=== PATIENT | female | born 1990 | race Caucasian/White ===

== ENCOUNTER 2022-07-06 07:29 | Inpatient (IN) ==
[2022-07-06] MEDS ORDERED: ZOFRAN INJ 4 MG VIAL ONE (07:37)
[2022-07-06] MEDS ORDERED: REGLAN INJ 10 MG VIAL ONE (07:37)
[2022-07-06] MEDS ORDERED: ANCEF VIAL 1 GRAM ONE (07:38)
[2022-07-06] MEDS ORDERED: D5 1/2 NS 1,000 mL + PITOCIN 20 UNITS/L IV 20 UNITS/1,000 ML BAG IV ONE (07:38)
[2022-07-06] MEDS ORDERED: NS 100 ML IV 100 ML ONE (07:38)
[2022-07-06] MEDS ORDERED: PEPCID 20 MG VIAL ONE (07:38)
[2022-07-06] MEDS ORDERED: LR 1,000 ML IV 1,000 ML IV ONE ×3 (07:38→09:07)
[2022-07-06] MEDS ORDERED: ANCEF VIAL 1 GRAM IVP ONE (07:47)
[2022-07-06] MEDS ORDERED: ZOFRAN INJ 4 MG VIAL IVP ONE (07:50)
[2022-07-06] MEDS ORDERED: PEPCID 20 MG VIAL IVP ONE (07:50)
[2022-07-06] MEDS ORDERED: REGLAN INJ 10 MG VIAL IVP ONE (07:50)
[2022-07-06 08:30] LABS: BILIRUBIN,URINE NEGATIVE (NEGATIVE); BLOOD/HEMOGLOBIN,URINE NEGATIVE (NEGATIVE); GLUCOSE, URINE NEGATIVE (NEGATIVE); KETONES,URINE 1+ (NEGATIVE); LEUKOCYTE ESTERASE ,URINE 2+ (NEGATIVE); NITRITES,URINE NEGATIVE (NEGATIVE); PROTEIN,URINE 1+ (NEGATIVE); UROBILINOGEN,URINE 2+ (NORMAL)
[2022-07-06 08:34] LABS: BASOPHILS # (AUTO) 0.1 X10^3/uL (0.0-0.1); BASOPHILS % (AUTO) 0.7 % (0.2-1.0); EOSINOPHILS # (AUTO) 0.1 x10^3/uL (0.0-0.2); EOSINOPHILS % (AUTO) 1.5 % (0.9-2.9); HEMATOCRIT 32.8 % (36.0-47.0); HEMOGLOBIN 11.5 g/dL (12.0-16.0); MEAN CORPUSCULAR VOLUME 82.9 fL (80.0-100.0); MEAN PLATELET VOLUME 7.9 fL (7.4-11.0); MONOCYTES # (AUTO) 0.7 x10^3/uL (0.3-0.8); MONOCYTES % (AUTO) 7.7 % (0.0-13.0); NEUTROPHILS # (AUTO) 5.8 x10^3/uL (2.2-4.8); NEUTROPHILS % (AUTO) 67.1 % (42.0-75.0); RED BLOOD COUNT 3.96 X10^6/uL (3.5-5.4); RED CELL DISTRIBUTION WIDTH 15.5 % (11.6-16.5); WHITE BLOOD COUNT 8.6 X10^3/uL (3.6-10.0)
[2022-07-06 08:37] LABS: BLOOD UREA NITROGEN 6 mg/dL (7-18); CALCIUM 8.2 mg/dL (8.5-10.1); CARBON DIOXIDE 21.7 mmol/L (21-32); CHLORIDE 105 mmol/L (98-107); CREATININE 0.56 mg/dL (0.55-1.02); SODIUM 139 mmol/L (136-145); eGFR NON BLACK RACES > 60 (>60)
[2022-07-06] MEDS ORDERED: EPHEDRINE SULFATE INJ ONE (08:44)
[2022-07-06 08:46] LABS: APPEARANCE,URINE HAZY (CLEAR); BACTERIA,URINE TRACE /HPF (NEGATIVE); COLOR,URINE YELLOW (YELLOW); RBC,URINE 0-2 /HPF (0-3); SQUAMOUS EPITHELIAL CELL,UR MANY /HPF (NEGATIVE)
[2022-07-06] MEDS ORDERED: MARCAINE SPINAL ONE (08:48)
[2022-07-06] MEDS ORDERED: DILAUDID INJ ONE (08:48)
[2022-07-06] MEDS ORDERED: XYLOCAINE 2 % (PLAIN) ONE (08:57)
[2022-07-06] MEDS ORDERED: TORADOL 30 MG VIAL ONE (08:59)
[2022-07-06] MEDS ORDERED: PITOCIN ONE ×2 (08:59)
[2022-07-06] MEDS ORDERED: OFIRMEV IV 1000 MG VIAL 1,000 MG/100 ML VIAL IV ONE (09:49)
[2022-07-06] MEDS ORDERED: ZOFRAN INJ 4 MG VIAL IVP PRN (10:57)
[2022-07-06] MEDS ORDERED: BENADRYL INJ 50 MG VIAL IVP PRN (10:57)
[2022-07-06] MEDS ORDERED: D5 1/2 NS 1,000 ML 1,000 ML with PITOCIN 20 UNITS IV PRN ×2 (10:57)
[2022-07-06] MEDS ORDERED: PHENERGAN INJ 25 MG IM PRN (10:57)
[2022-07-06] MEDS ORDERED: MYLICON TAB 80 MG CHEW PO PRN (10:57)
[2022-07-06] MEDS: TORADOL 30 MG VIAL IM PRN (20:05)
[2022-07-06] MEDS ORDERED: D5 1/2 NS 1,000 ML 1,000 ML IV ONE (21:23)
[2022-07-06] MEDS ORDERED: D5 1/2 NS 1,000 ML 1,000 ML IV SCH (21:25)
[2022-07-07] MEDS ORDERED: LR 1,000 ML IV 1,000 ML IV ONE ×2 (00:19→06:41)
[2022-07-07] MEDS: LR 1,000 ML IV 1,000 ML IV SCH ×3 (01:57→18:09)
[2022-07-07 05:58] LABS: HEMOGLOBIN 6.2 g/dL (12.0-16.0)
[2022-07-07 05:59] LABS: HEMATOCRIT 17.6 % (36.0-47.0)
[2022-07-07] MEDS: TORADOL 30 MG VIAL IM PRN (06:40)
[2022-07-07] MEDS ORDERED: PRENATAL PLUS PO SCH (09:00)
[2022-07-07] MEDS ORDERED: NS 250 ML IV 250 ML IV ONE ×2 (09:05→12:06)
[2022-07-07] MEDS ORDERED: INFeD or DEXFERRUM 25 MG in NS 100 ML IV 100 ML IV NR (10:00)
[2022-07-07] MEDS ORDERED: TYLENOL 500 MG TAB EXTRA STRENGTH PO PRN (11:41)
[2022-07-07] MEDS: INFeD or DEXFERRUM 975 MG in NS 500 ML IV 500 ML IV NR ×2 (15:04→16:30)
[2022-07-07 15:52] LABS: HEMATOCRIT 20.8 % (36.0-47.0); HEMOGLOBIN 7.4 g/dL (12.0-16.0)
[2022-07-07] MEDS ORDERED: ADACEL or BOOSTRIX TDaP VACCINE IM ONE (17:58)
[2022-07-07 20:05] VITALS: BP 107/64
== END 2022-07-07 20:20 | disposition home or self-care (01) | DRG 788 ==
LOC: LD 07:29 → MED/SURG 11:06
PROVIDERS: ADMIT Obstetrics & Gynecology Obstetrics; ATTEND Obstetrics & Gynecology Obstetrics
DX: N85.8 Other specified noninflammatory disorders of uterus; Z3A.39 39 weeks gestation of pregnancy; Z37.0 Single live birth; O34.211 Maternal care for low transverse scar from previous cesarean delivery

== ENCOUNTER 2024-02-25 06:17 | Inpatient (IN) ==
[2024-02-25] MEDS: AQUA-MEPHYTON NEONATAL IM ONE (06:47)
[2024-02-25] MEDS: ILOTYCIN OPHTH OINT ONE (06:47)
[2024-02-25] MEDS: LR 1,000 ML IV 1,000 ML IV ONE ×3 (07:00→08:03)
[2024-02-25] MEDS: NOZIN NASAL SANITIZER TP ONE (07:00)
[2024-02-25] MEDS: ANCEF VIAL 1 GRAM IVP ONE (07:06)
[2024-02-25] MEDS: XYLOCAINE 2 % (PLAIN) ONE (07:43)
[2024-02-25] MEDS: ZOFRAN INJ 4 MG VIAL ONE (07:43)
[2024-02-25] MEDS: PEPCID 20 MG VIAL ONE (07:43)
[2024-02-25] MEDS: OFIRMEV IV 1000 MG VIAL 1,000 MG/100 ML VIAL IV ONE (07:43)
[2024-02-25] MEDS: MARCAINE SPINAL ONE (07:43)
[2024-02-25] MEDS: DECADRON INJ ONE ×2 (07:43→08:19)
[2024-02-25] MEDS: TORADOL 30 MG VIAL ONE (07:43)
[2024-02-25] MEDS: DILAUDID INJ ONE (07:48)
[2024-02-25 07:49] LABS: BASOPHILS % (AUTO) 0.6 % (0.2-1.0); EOSINOPHILS # (AUTO) 0.1 x10^3/uL (0.0-0.2); EOSINOPHILS % (AUTO) 1.4 % (0.9-2.9); HEMATOCRIT 31.7 % (36.0-47.0); HEMOGLOBIN 11.2 g/dL (12.0-16.0); LYMPHOCYTES # (AUTO) 1.8 X10^3/uL (1.3-2.9); LYMPHOCYTES % (AUTO) 24.2 % (21.0-51.0); MEAN CORPUSCULAR HEMOGLOBIN 30.5 pg (27.0-34.0); MEAN CORPUSCULAR HGB CONC 35.3 g/dL (33.0-35.0); MEAN CORPUSCULAR VOLUME 86.4 fL (80.0-100.0); MEAN PLATELET VOLUME 8.6 fL (7.4-11.0); MONOCYTES # (AUTO) 0.4 x10^3/uL (0.3-0.8); MONOCYTES % (AUTO) 5.7 % (0.0-13.0); NEUTROPHILS # (AUTO) 5.2 x10^3/uL (2.2-4.8); NEUTROPHILS % (AUTO) 68.1 % (42.0-75.0); PLATELET COUNT 202 X10^3/uL (150.0-450.0); RED BLOOD COUNT 3.67 X10^6/uL (3.5-5.4); RED CELL DISTRIBUTION WIDTH 15.1 % (11.6-16.5); WHITE BLOOD COUNT 7.6 X10^3/uL (3.6-10.0)
[2024-02-25] MEDS: NS 100 ML IV 100 ML ONE (07:59)
[2024-02-25] MEDS: ANCEF VIAL 1 GRAM ONE (07:59)
[2024-02-25 08:03] LABS: ALANINE AMINOTRANSFERASE 21 Units/L (12-78); ALKALINE PHOSPHATASE 89 Units/L (46-116); ASPARTATE AMINO TRANSFERASE 18 Units/L (15-37); BLOOD UREA NITROGEN 5 mg/dL (7-18); CARBON DIOXIDE 23.5 mmol/L (21-32); CHLORIDE 105 mmol/L (98-107); COR CA(FOR HYPOALB) 9.6 mg/dL (8.5-10.1); CREATININE 0.54 mg/dL (0.55-1.02); GLUCOSE 101 mg/dL (65-99); POTASSIUM 3.3 mmol/L (3.5-5.1); SODIUM 138 mmol/L (136-145); TOTAL PROTEIN 5.6 g/dL (6.4-8.2); eGFR NON BLACK RACES > 60 (>60)
[2024-02-25] MEDS: PITOCIN ONE ×2 (08:42→08:49)
[2024-02-25] MEDS: VERSED ONE (08:45)
[2024-02-25] MEDS: DIPRIVAN VIAL 20 ML ONE (08:53)
[2024-02-25] MEDS ORDERED: MORPHINE SULFATE INJ 2 MG INJ IVP PRN (09:15)
[2024-02-25] MEDS ORDERED: BENADRYL INJ 50 MG VIAL IVP PRN ×2 (09:22→09:25)
[2024-02-25] MEDS ORDERED: DILAUDID INJ IVP PRN (09:22)
[2024-02-25] MEDS ORDERED: ZOFRAN INJ 4 MG VIAL IVP PRN ×2 (09:22→12:25)
[2024-02-25] MEDS ORDERED: TORADOL 30 MG VIAL IVP PRN (09:25)
[2024-02-25] MEDS ORDERED: REGLAN INJ 10 MG VIAL IVP PRN (09:25)
[2024-02-25] MEDS ORDERED: NARCAN INJ IVP PRN (09:25)
[2024-02-25] MEDS ORDERED: ZOFRAN INJ 4 MG VIAL IVP SCH (10:00)
[2024-02-25] MEDS ORDERED: D5 1/2 NS 1,000 ML 1,000 ML with PITOCIN 20 UNITS IV SCH (10:00)
[2024-02-26] MEDS ORDERED: COLACE CAP 100 MG PO SCH (09:00)
[2024-02-26] MEDS: PERCOCET TAB 5/325 MG PO PRN ×2 (09:04→19:50)
[2024-02-26] MEDS: MOTRIN TAB 800 MG PO SCH (11:07)
[2024-02-26] MEDS: COLACE CAP 100 MG PO SCH (20:50)
[2024-02-27 00:21] VITALS: O2SAT 97
[2024-02-27 08:10] VITALS: BP 124/70; PULSE 81; RESP 18; TEMP 97.7
== END 2024-02-27 12:05 | disposition home or self-care (01) | DRG 785 ==
LOC: LD 06:17 → MED/SURG 09:52
PROVIDERS: ADMIT Obstetrics & Gynecology Obstetrics; ATTEND Obstetrics & Gynecology Obstetrics